=== PATIENT | female | born 1940 | race Caucasian/White ===

== ENCOUNTER 2018-02-20 19:50 | Inpatient (IN) | payer MEDICARE, MEDICAID ==
[2018-02-20 20:23] LABS: Bilirubin Negative (Negative); Blood, Urine Negative (Negative); Clarity CLEAR (Clear); Glucose, Urine (Dipstick) Negative (Negative); Leukocyte Negative (Negative); Nitrite Negative (Negative); Protein, Urine (Dipstick) Negative (Neg-Trace); Specific Gravity, Urine 1.016 (1.002-1.036); Urobilinogen 0.2 mg/dL (0.2-1.0)
[2018-02-20 20:34] LABS: #Eosinphils 0.2 thou/uL (0.0-0.7); #Lymphocytes 1.6 thou/uL (1.20-3.40); #Monocytes 0.4 thou/uL (0.11-0.59); #Neutrophils 3.1 thou/uL (1.40-6.50); %Basophils 0.5 % (0.0-1.0); %Eosinophils 2.9 % (0.0-10.0); %Lymphocytes 30.5 % (21.0-51.0); %Neutrophils 59.1 % (42.0-75.0); Hemoglobin 10.7 g/dL (12.0-16.0); Mean Corpuscular HGB CONC 33.9 g/dL (32.0-36.0); Mean Corpuscular Hemoglobin 32.4 pg (27.0-31.0); Mean Corpuscular Volume 95.5 fl (81.0-99.0); Platelet Count 151 thou/uL (130-400); RBC Distribution Width 13.5 % (11.5-14.5); Red Blood Cell (RBC) Count 3.31 mill/uL (4.20-5.40); White Blood Cell (WBC) Count 5.2 thou/uL (4.8-10.8)
[2018-02-20 20:56] LABS: ALT (SGPT) 20 U/L (8-55); AST (SGOT) 22 U/L (5-34); Albumin 3.1 g/dL (3.4-4.8); Alkaline Phosphatase 52 U/L (40-150); Anion Gap 14 mmol/L (10-20); BUN (Urea Nitrogen) 66 mg/dL (9.8-20.1); Bilirubin, Total 0.3 mg/dL (0.2-1.2); CK (CPK) 110 U/L (29-168); Calc. Creatinine Clearance 0 mL/min (70-130); Calcium 8.6 mg/dL (7.8-10.44); Carbon Dioxide 22 mmol/L (23-31); Chloride 108 mmol/L (98-107); Estimated GFR-MDRD 14; Globulin 2.6 g/dL (2.4-3.5); Glucose 76 mg/dL (83-110); Lipase 107 U/L (8-78); Potassium 4.6 mmol/L (3.5-5.1); Protein, Total 5.7 g/dL (6.0-8.3); Sodium 139 mmol/L (136-145)
[2018-02-20 21:00] LABS: CKMB 2.1 ng/mL (0-6.6); Troponin I 0.016 ng/mL (< 0.028)
[2018-02-20] MEDS ORDERED: Piperacillin/Tazobactam 3.375 GM VIAL ONE (21:22)
--- NOTE | 2018-02-20 21:26 | RAD ---
PORTABLE AP CHEST X-RAY 02/20/18 HISTORY: Altered mental status. Low blood pressure. COMPARISON: 05/30/15. FINDINGS: The cardiac silhouette is magnified by projection. There is atelectasis present at each lung base. Pu lmonary vasculature is within normal limits. Lungs are otherwise clear. Right paratracheal soft tissu e density is again seen, but this is shown to represent tortuosity of vascular structures on CT thora x on 06/03/15. Osteopenia with degenerative change in the spine. Mild elevation right hemidiaphragm is again present . IMPRESSION: 1. No acute cardiopulmonary process. 2. Atelectasis left lung base. 3. Osteopenia. POS: [facility]
--- NOTE | 2018-02-20 22:14 | CT ---
NONCONTRAST CT HEAD: 02/20/18 HISTORY: Altered mental status and confusion. COMPARISON: 12/01/13. FINDINGS: Again noted are chronic small vessel ischemic changes and cerebral volume loss. There is no evidence of an acute cortical infarction, hemorrhage, mass effect, of midline shift. Punctate low density focu s is seen within the right lentiform nucleus which may represent a tiny lacunar infarction of indeter minate age. There is no evidence of an acute cortical infarction, hemorrhage, mass effect, or midline shift. There is cerebral volume loss again present. Ventricular system is normal in size, shape and position for the degree of sulcal atrophy. Again noted is opacification of the left sphenoid sinus. There is partial visualization of postsurgic al changes related to posterior fusion of the upper cervical spine. No other interval change. IMPRESSION: 1. No acute intracranial abnormalities demonstrated. 2. Chronic small vessel ischemic changes and cerebral volume loss. 3. Stable sinus disease involving the left sphenoid sinus. POS: [facility]
[2018-02-21] MEDS ORDERED: Sodium Chloride 0.45% 1,000 ML IV SCH (04:41)
--- NOTE | 2018-02-21 08:24 | CT ---
CT ABDOMEN AND PELVIS WITHOUT IV CONTRAST: Date: 02/20/18 HISTORY: Abdominal pain, hypotensive, altered mental status. COMPARISON: CT abdomen on 06/03/15. FINDINGS: There is bibasilar parenchymal lung change, probably related to bibasilar atelectasis. The liver, spleen, pancreas, bilateral adrenal glands, and kidneys demonstrate a grossly normal nonen hanced CT appearance. The urinary bladder is distended and extends superiorly to the level of the iliac crests. The uterus is not visualized, likely related to hysterectomy. There is colonic diverticulosis present. The appendix is visualized and normal in caliber. Inferior vena cava filter is again noted in place in an infrarenal location. Vascular calcifications seen in the abdominal aorta and iliac arteries. Degenerative changes are again seen in the spine. No dilated loops of small bowel are seen, but there is thickening of the landaver[place] of the stomach, probably related to incomplete distention. However, there is also mild thickening involving the first and second portions of the duodenum. Ulcer disease could not be excluded. IMPRESSION: 1. Thickening in first portion and most proximal aspect of the second portion of the duodenum. Ulcer disease cannot be excluded. Prior study did demonstrate ulceration, although the degree of thickenin g was much greater on the prior study in 2014. 2. No renal or ureteral calculi are seen bilaterally. 3. Colonic diverticulosis. 4. Distention of the urinary bladder. 5. Hysterectomy. POS: [facility]
[2018-02-21] MEDS ORDERED: Prevnar 13-Val Conj/PF 0.5 ML SYRINGE IM ONE (09:00)
[2018-02-21] MEDS ORDERED: Insulin Regular 300 UNITS/3 ML VIAL SC PRN (12:23)
[2018-02-21] MEDS ORDERED: Dextrose 5% in Water 1,000 ML IV PRN (12:24)
[2018-02-21] MEDS ORDERED: Dextrose 50% Abboject 50 ML SYRINGE IVP PRN (12:24)
[2018-02-21] MEDS: Piperacillin/Tazobactam 2.25 GM in Sodium Chloride 0.9% 100 ML IVPB SCH ×2 (13:08→21:38)
[2018-02-21] MEDS: Sodium Chloride 0.9% 1,000 ML IV SCH ×3 (13:14→22:13)
--- NOTE | 2018-02-21 18:28 | HP ---
REASON FOR ADMISSION: Weakness and dehydration. HISTORY OF PRESENT ILLNESS: This is a 77-year-old female, who has been a resident at [facility] for l ast 2-3 years with a history of PE and DVT. She also has a history of hypertension, hyperlipidemia, and diabetes. For the last several days, the nurse has been trying to get her to drink fluids; however, she was hav ing some abdominal cramps and was not taking much in. She was also having nausea. We checked a UA t hat was negative at the longterm; however, she became more weak and therefore we brought her into the hospital and was found to have dehydration with a creatinine over 3. She also had a little bit altered mental status with a CT, which was negative. The patient denies an y chest or arm pain. She does have a history of chronic back pain with no PND, orthopnea, or palpita tions. PAST MEDICAL HISTORY: 1. Hypertension. 2. Peripheral neuropathy. 3. Diabetes. 4. Hyperlipidemia. 5. Anemia. 6. Arthritis. 7. History of neck surgery. 8. Insomnia. PAST SURGICAL HISTORY: Lumbar surgery x2 and a cholecystectomy. ALLERGIES: SULFA. MEDICATIONS: 1. Clonidine 0.1 mg b.i.d. 2. Metformin 1000 mg b.i.d. 3. Coreg 12.5 mg b.i.d. and then 25 mg at night. 4. Zocor 20 mg at bedtime. 5. Depakote 125 mg every day. 6. Celebrex 200 mg daily. 7. Hydrochlorothiazide 50 mg every day. FAMILY HISTORY: Noncontributory. SOCIAL HISTORY: She lives at [facility]. She does not smoke, does not drink. She is . REVIEW OF SYSTEMS: GENERAL: Admits to weakness, fatigue. No fever or chills. HEENT: No diplopia, amaurosis fugax, tinnitus, sore throat or hoarseness. CARDIOVASCULAR: No chest or arm pain. PULMONARY: Does have a history of PE. No cough or hemoptysis. GASTROINTESTINAL: No GI bleed, constipation, diarrhea. GENITOURINARY: No dysuria, nocturia, oliguria or polyuria. ENDOCRINE: No polyphagia, polydipsia or heat or cold intolerance. MUSCULOSKELETAL: Admits to arthra lgias. No lupus or myopathy. NEUROLOGIC: No history of TIA or seizure. All systems are negative. PHYSICAL EXAMINATION: GENERAL APPEARANCE: This pleasant female, who appears to be in acute distress. She is awake. She i s alert. VITAL SIGNS: Her blood pressure is 150/70, pulse 60, respiration 20. She is afebrile. NECK: Supple, no increased JVP or carotid bruit. Carotid had good upstroke with no thyromegaly. COR: Regular rate and rhythm. CHEST: Symmetrical. Clear to auscultation and percussion. ABDOMEN: Soft, nontender, normoactive bowel sounds. There is no bruit or organomegaly. EXTREMITIES: No edema or cyanosis. She had palpable pedal pulses. SKIN: There is no evidence of ulcers lesion, or rash. NEUROLOGIC: She is awake, alert, and oriented to person, place, and time. LABORATORY DATA: Her H&H is 10.7 and 31.6. White blood cell count 5.2. Her BUN is 66, creatinine i s 3.17. Her lipase is 107. She did have a CT of the brain that was normal. Chest x-ray normal. Ab domen and pelvis CT showed demonstrated thickening and first portion of that aspect of the second por tion of the duodenum, no renal stones and also had colonic diverticulosis, distention of the bladder, and hysterectomy. ASSESSMENT: 1. Dehydration. 2. Elevated kidney function secondary to above. 3. Hypertension. 4. Hyperlipidemia. 5. Diabetes. 6. Chronic back pain. 7. History of neck surgery. 8. History of pulmonary embolus and DVT with IVC filter placement. 9. Elevated lipase. 10. Possible enteritis. PLAN: 1. The patient's home medication will be resumed except her metformin and she is not eating yet. I will continue IV fluids. We will also continue IV Zosyn. We will ask Physical Therapy to see the laura paiz in consultation. 2. We will begin Nexium daily. 3. We will check a CBC, CMP, amylase, and lipase in the morning. All questions answered to the patient's satisfaction. Eloisa Chou, SURINDER-C dictating for Dr. Branden Carr.
[2018-02-21] MEDS: Carvedilol 6.25 MG TAB PO SCH (21:40)
[2018-02-21] MEDS: cloNIDine 0.1 MG TAB PO SCH (21:40)
[2018-02-21] MEDS: Carvedilol 25 MG TAB PO SCH (21:41)
[2018-02-21] MEDS: Atorvastatin Calcium 10 MG TAB PO SCH (21:41)
[2018-02-21] MEDS: Dextrose 5 %-0.45 % NaCl 1,000 ML IV SCH (22:14)
[2018-02-21] MEDS ORDERED: Dextrose 50% Abboject 50 ML SYRINGE SLOW IVP SCH (22:15)
[2018-02-22] MEDS: Piperacillin/Tazobactam 2.25 GM in Sodium Chloride 0.9% 100 ML IVPB SCH ×3 (05:15→22:44)
[2018-02-22 05:17] LABS: #Eosinphils 0.2 thou/uL (0.0-0.7); #Lymphocytes 1.1 thou/uL (1.20-3.40); #Monocytes 0.4 thou/uL (0.11-0.59); #Neutrophils 2.7 thou/uL (1.40-6.50); %Basophils 0.2 % (0.0-1.0); %Eosinophils 3.6 % (0.0-10.0); %Lymphocytes 25.6 % (21.0-51.0); %Monocytes 8.4 % (0.0-10.0); %Neutrophils 62.2 % (42.0-75.0); Hemoglobin 9.8 g/dL (12.0-16.0); Mean Corpuscular HGB CONC 33.3 g/dL (32.0-36.0); Mean Corpuscular Hemoglobin 31.8 pg (27.0-31.0); Mean Corpuscular Volume 95.6 fl (81.0-99.0); Mean Platelet Volume 6.7 fL (7.4-10.4); Platelet Count 128 thou/uL (130-400); RBC Distribution Width 13.4 % (11.5-14.5); Red Blood Cell (RBC) Count 3.08 mill/uL (4.20-5.40); White Blood Cell (WBC) Count 4.4 thou/uL (4.8-10.8)
[2018-02-22 05:26] LABS: ALT (SGPT) 16 U/L (8-55); AST (SGOT) 19 U/L (5-34); Albumin 2.8 g/dL (3.4-4.8); Alkaline Phosphatase 47 U/L (40-150); Anion Gap 10 mmol/L (10-20); BUN (Urea Nitrogen) 44 mg/dL (9.8-20.1); Bilirubin, Total 0.3 mg/dL (0.2-1.2); Calc. Creatinine Clearance 22 mL/min (70-130); Calcium 8.1 mg/dL (7.8-10.44); Carbon Dioxide 20 mmol/L (23-31); Cardiac Risk 4.5 (Less than 4.5); Chloride 111 mmol/L (98-107); Cholesterol 100 mg/dl (< 200 Desired); Estimated GFR-MDRD 20; Globulin 2.4 g/dL (2.4-3.5); Glucose 212 mg/dL (83-110); HDL Cholesterol 22 mg/dL (>60 Neg Risk); LDL Cholesterol, Calculated 33 mg/dL; Lipase 93 U/L (8-78); Potassium 4.2 mmol/L (3.5-5.1); Protein, Total 5.2 g/dL (6.0-8.3); Sodium 137 mmol/L (136-145); Triglycerides 223 mg/dL (Less than 150)
[2018-02-22] MEDS ORDERED: Morphine 4 MG/ML VIAL SLOW IVP SCH (06:00)
[2018-02-22] MEDS ORDERED: Ondansetron HCl/PF 4 MG/2 ML Vial SLOW IVP PRN (06:00)
[2018-02-22] MEDS: Dextrose 5 %-0.45 % NaCl 1,000 ML IV SCH ×2 (07:34→18:20)
[2018-02-22] MEDS: Pantoprazole 40 MG VIAL IVP SCH ×2 (08:53→22:38)
[2018-02-22] MEDS: CeleCOXIB 100 MG CAP PO SCH (09:43)
[2018-02-22] MEDS: Carvedilol 6.25 MG TAB PO SCH ×2 (09:43→22:41)
[2018-02-22] MEDS: cloNIDine 0.1 MG TAB PO SCH ×2 (09:43→22:41)
[2018-02-22] MEDS: Hydrochlorothiazide 25 MG TAB PO SCH (09:44)
[2018-02-22] MEDS: Morphine 4 MG/ML VIAL SLOW IVP PRN (22:39)
[2018-02-22] MEDS: Carvedilol 25 MG TAB PO SCH (22:41)
[2018-02-22] MEDS: Atorvastatin Calcium 10 MG TAB PO SCH (22:41)
[2018-02-23] MEDS: Dextrose 5 %-0.45 % NaCl 1,000 ML IV SCH ×3 (04:50→23:39)
[2018-02-23 05:23] LABS: #Eosinphils 0.1 thou/uL (0.0-0.7); #Lymphocytes 1.4 thou/uL (1.20-3.40); #Monocytes 0.6 thou/uL (0.11-0.59); #Neutrophils 2.8 thou/uL (1.40-6.50); %Basophils 0.3 % (0.0-1.0); %Lymphocytes 28.1 % (21.0-51.0); %Monocytes 12.7 % (0.0-10.0); Hemoglobin 10.5 g/dL (12.0-16.0); Mean Corpuscular HGB CONC 33.3 g/dL (32.0-36.0); Mean Corpuscular Hemoglobin 31.6 pg (27.0-31.0); Mean Corpuscular Volume 94.8 fl (81.0-99.0); Mean Platelet Volume 7.3 fL (7.4-10.4); Platelet Count 126 thou/uL (130-400); RBC Distribution Width 13.4 % (11.5-14.5); Red Blood Cell (RBC) Count 3.31 mill/uL (4.20-5.40)
[2018-02-23 05:35] LABS: Anion Gap 13 mmol/L (10-20); BUN (Urea Nitrogen) 28 mg/dL (9.8-20.1); Calc. Creatinine Clearance 24 mL/min (70-130); Calcium 8.4 mg/dL (7.8-10.44); Carbon Dioxide 18 mmol/L (23-31); Chloride 110 mmol/L (98-107); Estimated GFR-MDRD 22; Glucose 176 mg/dL (83-110); Lipase 89 U/L (8-78); Sodium 137 mmol/L (136-145)
[2018-02-23] MEDS: Piperacillin/Tazobactam 2.25 GM in Sodium Chloride 0.9% 100 ML IVPB SCH ×3 (05:36→21:13)
[2018-02-23 08:23] VITALS: BMI 28.3
--- NOTE | 2018-02-23 08:41 | PRG ---
DATE OF SERVICE: 02/23/2018 SUBJECTIVE: The patient is still having slight abdominal discomfort. She is still n.p.o. for pancre atitis. She is awake, alert, and oriented. There is no family here at bedside. PHYSICAL EXAMINATION: GENERAL: Upon evaluation she is awake. VITAL SIGNS: Her blood pressure is 130/90, pulse 90, respirations 18, she is afebrile. NECK: The neck is supple, no increased JVP or carotid bruit. Carotids had good upstrokes, no thyrom egaly. COR: Regular rate and rhythm. CHEST: Symmetrical. Clear to auscultation and percussion. ABDOMEN: Distended, soft, tender. She had hypoactive bowel. No bruit or organomegaly. EXTREMITIES: No edema or cyanosis. She had palpable pedal pulses. SKIN: There is no evidence of ulcers, lesion or rash. NEUROLOGIC: She is awake and alert. LABORATORY: Her CBC showed a white blood cells 5, H&H 10.5 and 31.4, platelet count is 126. Her BUN is 28, creatinine 2.14. Lipase is 89. IMPRESSION: 1. Pancreatitis. 2. Dehydration. 3. Acute renal failure. 4. Diabetes. PLAN: The patient will be continued n.p.o. for now. Hopefully, tomorrow we will be able to start cl ear liquids. We will also follow up with amylase and lipase and CMP in the morning. The patient douglas balized understanding. All questions answered to her satisfaction.
[2018-02-23] MEDS: Carvedilol 6.25 MG TAB PO SCH ×2 (09:00→20:37)
[2018-02-23] MEDS: CeleCOXIB 100 MG CAP PO SCH (09:00)
[2018-02-23] MEDS: Hydrochlorothiazide 25 MG TAB PO SCH (09:01)
[2018-02-23] MEDS: cloNIDine 0.1 MG TAB PO SCH ×2 (09:01→20:37)
[2018-02-23] MEDS: Pantoprazole 40 MG VIAL IVP SCH ×2 (09:02→20:38)
--- NOTE | 2018-02-23 11:20 | PQF ---
CLINICAL DOCUMENTATION IMPROVEMENT CLARIFICATION FORM: ICD-10 Updated PLEASE DO AN ADDENDUM TO THE PROGRESS NOTE WITH ANY DOCUMENTATION UPDATES OR ADDITIONS AND CARRY THROUGH TO DC SUMMARY. THANK YOU. DATE: 02/23 ATTN: DR. JACK GONZALEZ Please exercise your independent, professional judgment in responding to the clarification form. Clinical indicators are provided on the bottom of this form for your review Please check appropriate box(s): ____x___ I (concur) with the Wound Care findings as stated below. [ x ] Pressure Ulcer: (Stage I: Erythema; Stage II: Partial thickness; Stage III : Full thickness; Stage IV: Necrosis to muscle/bone) [ x ] Location: right buttock POA: [ x ] Yes [ ] No [ ] Unable to determine Stage (I to IV): __II (Left Right___x__ Bilateral N/A____ _) [ ] Location: POA: [ ] Yes [ ] No [ ] Unable to determine Stage (I to IV): (Left Right Bilateral N/A ) [ ] No pressure ulcer diagnosis [ ] Other diagnosis [ ] Unable to determine In addition, please specify: Present on Admission (POA): [ x ] Yes [ ] No [ ] Unable to determine For continuity of documentation, please document condition throughout progress notes and discharge summary. Thank You. CLINICAL INDICATORS - SIGNS / SYMPTOMS / LABS WOUND CARE DOCUMENTATION 02/22: STAGE II PRESSURE ULCER R BUTTOCK RISK FACTORS: DEMENTIA DEHYDRATION INCONTINENT TREATMENTS: WOUND CARE CONSULT TURN Q2 HRS & PRN MAE ESCOTO THANK YOU! Jael (This form is maintained as a part of the permanent medical record) 2014 [employer]. All Rights Reserved Jael Huffman RN, BSN [email or web address] Office: [phone] [facility]
[2018-02-23] MEDS: Atorvastatin Calcium 10 MG TAB PO SCH (20:37)
[2018-02-23] MEDS: Carvedilol 25 MG TAB PO SCH (20:37)
[2018-02-23] MEDS: Morphine 4 MG/ML VIAL SLOW IVP PRN (20:54)
[2018-02-24] MEDS: Piperacillin/Tazobactam 2.25 GM in Sodium Chloride 0.9% 100 ML IVPB SCH ×3 (05:34→21:02)
[2018-02-24] MEDS: Dextrose 5 %-0.45 % NaCl 1,000 ML IV SCH ×3 (05:34→21:03)
[2018-02-24 06:20] LABS: ALT (SGPT) 29 U/L (8-55); AST (SGOT) 55 U/L (5-34); Albumin 2.8 g/dL (3.4-4.8); Alkaline Phosphatase 119 U/L (40-150); Anion Gap 10 mmol/L (10-20); BUN (Urea Nitrogen) 19 mg/dL (9.8-20.1); Bilirubin, Total 0.6 mg/dL (0.2-1.2); Calc. Creatinine Clearance 23 mL/min (70-130); Calcium 8.6 mg/dL (7.8-10.44); Carbon Dioxide 21 mmol/L (23-31); Chloride 109 mmol/L (98-107); Estimated GFR-MDRD 22; Globulin 2.6 g/dL (2.4-3.5); Glucose 164 mg/dL (83-110); Potassium 3.8 mmol/L (3.5-5.1); Protein, Total 5.4 g/dL (6.0-8.3); Sodium 136 mmol/L (136-145)
[2018-02-24] MEDS: Pantoprazole 40 MG VIAL IVP SCH ×2 (09:13→20:24)
[2018-02-24] MEDS: Hydrochlorothiazide 25 MG TAB PO SCH (09:20)
[2018-02-24] MEDS: cloNIDine 0.1 MG TAB PO SCH ×2 (09:20→20:24)
[2018-02-24] MEDS: CeleCOXIB 100 MG CAP PO SCH (09:21)
[2018-02-24] MEDS: Carvedilol 6.25 MG TAB PO SCH ×2 (09:21→20:24)
[2018-02-24] MEDS: Atorvastatin Calcium 10 MG TAB PO SCH (20:24)
[2018-02-24] MEDS: Carvedilol 25 MG TAB PO SCH (20:24)
[2018-02-25] MEDS: Piperacillin/Tazobactam 2.25 GM in Sodium Chloride 0.9% 100 ML IVPB SCH ×3 (06:16→21:29)
[2018-02-25 06:21] LABS: Anion Gap 9 mmol/L (10-20); BUN (Urea Nitrogen) 17 mg/dL (9.8-20.1); Calc. Creatinine Clearance 23 mL/min (70-130); Calcium 8.5 mg/dL (7.8-10.44); Carbon Dioxide 22 mmol/L (23-31); Chloride 111 mmol/L (98-107); Estimated GFR-MDRD 21; Glucose 134 mg/dL (83-110); Lipase 48 U/L (8-78); Potassium 3.8 mmol/L (3.5-5.1); Sodium 138 mmol/L (136-145)
[2018-02-25] MEDS: Hydrochlorothiazide 25 MG TAB PO SCH (08:49)
[2018-02-25] MEDS: Carvedilol 6.25 MG TAB PO SCH ×2 (08:50→21:28)
[2018-02-25] MEDS: CeleCOXIB 100 MG CAP PO SCH (08:51)
[2018-02-25] MEDS: cloNIDine 0.1 MG TAB PO SCH ×2 (08:51→21:29)
[2018-02-25] MEDS: Pantoprazole 40 MG VIAL IVP SCH ×2 (08:52→21:28)
[2018-02-25] MEDS: Dextrose 5 %-0.45 % NaCl 1,000 ML IV SCH (13:24)
[2018-02-25] MEDS: Megestrol Acetate 800 MG/20 ML UDCUP PO SCH (21:28)
[2018-02-25] MEDS: Atorvastatin Calcium 10 MG TAB PO SCH (21:28)
[2018-02-25] MEDS: Carvedilol 25 MG TAB PO SCH (21:29)
[2018-02-26] MEDS: Dextrose 5 %-0.45 % NaCl 1,000 ML IV SCH (02:10)
[2018-02-26] MEDS: Piperacillin/Tazobactam 2.25 GM in Sodium Chloride 0.9% 100 ML IVPB SCH (05:11)
[2018-02-26] MEDS: Megestrol Acetate 800 MG/20 ML UDCUP PO SCH (08:31)
[2018-02-26] MEDS: CeleCOXIB 100 MG CAP PO SCH (08:32)
[2018-02-26] MEDS: cloNIDine 0.1 MG TAB PO SCH (08:32)
[2018-02-26] MEDS: Carvedilol 6.25 MG TAB PO SCH (08:32)
[2018-02-26] MEDS: Hydrochlorothiazide 25 MG TAB PO SCH (08:32)
[2018-02-26] MEDS: Pantoprazole 40 MG VIAL IVP SCH (08:32)
[2018-02-26 12:09] VITALS: TEMP 97.6
[2018-02-26 12:48] VITALS: BP 138/69
== END 2018-02-26 14:15 | disposition home or self-care (01) | DRG 438 ==
LOC: ERS 19:50 → 2NO 02-21 00:58
PROVIDERS: ADMIT Specialist; ATTEND Specialist
DX: K85.90 Acute pancreatitis without necrosis or infection, unspecified (principal); R57.1 Hypovolemic shock; N17.9 Acute kidney failure, unspecified; L89.312 Pressure ulcer of right buttock, stage 2; G62.9 Polyneuropathy, unspecified; E11.9 Type 2 diabetes mellitus without complications; E86.0 Dehydration; F03.90 Unspecified dementia, unspecified severity, without behavioral disturbance, psychotic disturbance, mood disturbance, and anxiety; E78.5 Hyperlipidemia, unspecified; I10 Essential (primary) hypertension; R63.0 Anorexia; M81.0 Age-related osteoporosis without current pathological fracture
CPT/HCPCS: 36415; 36416; 51701; 70450; 71045; 74176; 80048; 80053; 80061; 81003; 82140; 82150; 82553; 83605; 83690; 84443; 84484; 85025; 87040; 87045; 87046; 87086; 87324; 87449; 87899; 93005; 94760; 96361; 96365; A4216; A4353; C9113; G8978-GP-CM; G8979-GP-CK; G8996-GN-CK; G8997-GN-CJ; J2270; J2543; J7042; J7050

== ENCOUNTER 2018-04-01 01:35 | Inpatient (IN) | payer MEDICARE, MEDICAID ==
[2018-04-01 02:17] LABS: Bilirubin Negative (Negative); Blood, Urine Trace (Negative); Clarity CLOUDY (Clear); Glucose, Urine (Dipstick) Negative (Negative); Leukocyte Large (Negative); Nitrite Negative (Negative); Protein, Urine (Dipstick) 100 mg/dL (Neg-Trace); Specific Gravity, Urine 1.015 (1.002-1.036); Urobilinogen 0.2 mg/dL (0.2-1.0); pH, Urine 5.5 (5.0-9.0)
[2018-04-01 02:21] LABS: Bacteria/HPF None Seen HPF (None Seen); Hyaline Casts/LPF 7-10 HYALINE CAST LPF (0-3 Hyaline); Pathc Cast-AUWi Flag 2.32 (0-2.49); Squamous Epithelial 0-3 HPF (0-3)
[2018-04-01 02:24] LABS: #Basophils 0.1 thou/uL (0.0-0.2); #Eosinphils 0.2 thou/uL (0.0-0.7); #Neutrophils 13.6 thou/uL (1.40-6.50); %Basophils 0.3 % (0.0-1.0); %Eosinophils 1.2 % (0.0-10.0); %Lymphocytes 16.6 % (21.0-51.0); %Monocytes 5.7 % (0.0-10.0); %Neutrophils 76.1 % (42.0-75.0); Hemoglobin 9.6 g/dL (12.0-16.0); Mean Corpuscular HGB CONC 32.5 g/dL (32.0-36.0); Mean Corpuscular Hemoglobin 31.3 pg (27.0-31.0); Mean Corpuscular Volume 96.1 fl (81.0-99.0); Mean Platelet Volume 7.1 fL (7.4-10.4); Platelet Count 276 thou/uL (130-400); RBC Distribution Width 13.8 % (11.5-14.5); Red Blood Cell (RBC) Count 3.06 mill/uL (4.20-5.40); White Blood Cell (WBC) Count 17.9 thou/uL (4.8-10.8)
[2018-04-01 02:24] LABS: Yeast-AUWi Flag 1714.2 (0-25.0)
[2018-04-01 02:24] LABS: Base Excess-Venous -13.3 mmol/L (0 (+/- 2.5)); Bicarbonate (HCO3v) 11.1 mmol/L (1.0-85.0); CO2 Tension (PvCO2) 21.4 mmHg (41.0-51.0); Calcium, Ionized 1.18 mmol/L (1.12-1.32); Hemoglobin - Calc 9.6 g/dL (12.0-18.0); O2 Tension (PvO2) 78.8 mmHg (35.0-45.0); Potassium 8.2 mmol/L (3.4-4.7); T. Carbon Dioxide 11.7 mmol/L (1.0-85.0); pH (Venous) 7.322 (7.35-7.45); vO2 Saturation-calc 94.9 % (94-98)
[2018-04-01] MEDS ORDERED: Calcium Gluc 4.6 MEQ/10 ML (100 MG/ML) ONE (02:27)
[2018-04-01 02:36] LABS: RBC/HPF 0-3 HPF (0-3); Yeast-All Forms 4+ HPF (None Seen)
[2018-04-01] MEDS ORDERED: Insulin Regular 300 UNITS/3 ML VIAL ONE (02:42)
[2018-04-01] MEDS ORDERED: Dextrose 50% Abboject 50 ML SYRINGE ONE (02:42)
[2018-04-01 02:49] LABS: ALT (SGPT) 16 U/L (8-55); AST (SGOT) 15 U/L (5-34); Albumin 3.3 g/dL (3.4-4.8); Alkaline Phosphatase 57 U/L (40-150); Anion Gap 17 mmol/L (10-20); Bilirubin, Total 0.4 mg/dL (0.2-1.2); Calc. Creatinine Clearance 0 mL/min (70-130); Calcium 9.8 mg/dL (7.8-10.44); Carbon Dioxide 12 mmol/L (23-31); Chloride 113 mmol/L (98-107); Estimated GFR-MDRD 7; Globulin 4.1 g/dL (2.4-3.5); Glucose 90 mg/dL (83-110); Lipase 63 U/L (8-78); Magnesium 2.1 mg/dL (1.6-2.6); Protein, Total 7.4 g/dL (6.0-8.3); Sodium 134 mmol/L (136-145)
[2018-04-01] MEDS ORDERED: Albuterol Sulfate 2.5 mg/0.5 ml Neb ONE (02:49)
[2018-04-01 02:56] LABS: Potassium 8.1 mmol/L (3.5-5.1)
[2018-04-01] MEDS ORDERED: cefTRIAXone\\ROCEPHIN 1 GM VIAL ONE (02:59)
[2018-04-01 03:01] LABS: BUN (Urea Nitrogen) 116 mg/dL (9.8-20.1)
[2018-04-01] MEDS ORDERED: Vancomycin HCl 1 GM in Premix Bag 1 BAG IVPB SCH ×3 (03:15→15:45)
[2018-04-01 07:20] LABS: HBSAB Concentration 0.37 mIU/mL; HBSAg Index 0.17 S/CO (0-0.99); Hep B Core Total Ab Non-Reactive (NonReactive); Hep B Core Total Index 0.18 S/CO (0-0.79); Hep B Surf AB Non-Reactive (NonReactive); Hep B Surf Ag Non-Reactive S/CO (NonReactive); Hep C IgG Ab Non-Reactive (NonReactive)
--- NOTE | 2018-04-01 08:15 | CT ---
PRELIMINARY REPORT/[facility]/EMERGENCY AFTER HOURS PROCEDURE: EXAM: CT Head Without Intravenous Contrast CLINICAL HISTORY: 77 years old, female; Signs and symptoms; Altered mental status/memory loss; Patient HX: F77 presents to ed for altered mental status. Ems reports pt is usually a&o x3 but is now a&o x0 and not talking. Ems reports pt was started on a new prescription for tramadol today. TECHNIQUE: Axial computed tomography images of the head/brain without intravenous contrast. COMPARISON: No relevant prior studies available. FINDINGS: Brain: Scattered areas of hypoattenuation, likely chronic small vessel ischemic change, demyelination , or gliosis. Ventricles: Normal. Bones/joints: Normal. No acute fracture. Soft tissues: Normal. Vasculature: Atherosclerotic vascular calcifications. Sinuses: Left sphenoid sinus disease. Mastoid air cells: Normal as visualized. No mastoid effusion. IMPRESSION: 1. No acute findings. 2. Non-acute findings are described above. Thank you for allowing us to participate in the care of your patient. Dictated and Authenticated by: Alexis Polanco MD 04/01/2018 2:50 AM Central Time ([place] & [place]) FINAL REPORT EMERGENCY AFTER HOURS CT OF BRAIN PERFORMED WITHOUT CONTRAST ENHANCEMENT: Date: 04/01/18 HISTORY: Altered mental status. COMPARISON: 02/20/18. FINDINGS: There is generalized ventricular and sulcal prominence with some decreased attenuation to the periven tricular white matter consistent with chronic white matter change. There are no signs of intracerebra l hemorrhage or extra-axial fluid collections. Mastoid air cells and visualized sinuses are clear. IMPRESSION: No acute intracranial abnormalities. This report is in agreement with the preliminary report issued by [facility]. POS: [facility]
[2018-04-01] MEDS ORDERED: Sodium Chloride 0.9% 1,000 ML IV SCH ×3 (08:45→23:00)
[2018-04-01] MEDS ORDERED: Insulin Regular 300 UNITS/3 ML VIAL SC PRN (08:49)
[2018-04-01] MEDS ORDERED: Dextrose 5% in Water 1,000 ML IV PRN (08:49)
[2018-04-01] MEDS ORDERED: Dextrose 50% Abboject 50 ML SYRINGE IVP PRN (08:49)
--- NOTE | 2018-04-01 09:12 | RAD ---
PORTABLE CHEST: Date: 04/01/18 HISTORY: Altered mental status. COMPARISON: 02/20/18. FINDINGS: Heart size appears borderline. Mediastinal structures are unremarkable. Lungs are clear of any infilt rative process. IMPRESSION: No active intrathoracic disease. POS: [facility]
[2018-04-01] MEDS ORDERED: HOLD VANCOMYCIN FOR LEVEL >20 FS SCH ×2 (09:15→15:45)
[2018-04-01] MEDS ORDERED: Vancomycin HCl 750 MG in Sodium Chloride 0.9% 250 ML 250 ML IVPB SCH ×2 (09:15→15:45)
[2018-04-01] MEDS ORDERED: Vancomycin HCl 250 MG in Sodium Chloride 0.9% 100 ML IVPB SCH ×2 (09:15→15:45)
[2018-04-01] MEDS ORDERED: Vancomycin Sliding Scale 1 EACH FS ONE (09:15)
[2018-04-01] MEDS ORDERED: Vancomycin HCl 500 MG in Sodium Chloride 0.9% 100 ML IVPB SCH (09:15)
--- NOTE | 2018-04-01 09:17 | HP ---
REASON FOR ADMISSION: Altered level of consciousness. HISTORY OF PRESENT ILLNESS: This is a pleasant 77-year-old female who is a resident at [facility] a history of multiple medical problems to include PE and DVT as well as hypertension and diabetes. She has had a cyst according to the wound doctor following her at [facility] on her coccyx. He had flakita mcdowell treating that. Unfortunately, it became worse where it started tunneling and a recent consultati on was sought out for a surgeon for surgical debridement. Unfortunately, I got a call yesterday with the patient stating that they had altered level of consciousness with earlier episodes of pocketing of food. Apparently in the daytime she had been doing well, but the night time, the nurse was notici ng she was not drinking very much and then had altered level of consciousness. She was sent to the ospital where she was found to have altered mental status with an acute renal failure and hyperkalemi a. She was also found to be septic secondary to urinary tract infection and probably a wound. For t his reason, she was admitted to ICU for further evaluation and treatment at which time she is now und ergoing emergent dialysis. The patient is awake. She will nod her head with questions, but she will not verbalize at this time. Most of the history was obtained from the old records. PAST MEDICAL HISTORY: 1. Hypertension. 2. Peripheral neuropathy. 3. Diabetes. 4. Hyperlipidemia. 5. Anemia. 6. Arthritis. 7. Insomnia. SURGICAL HISTORY: History of neck surgery and lumbar surgery x2 and cholecystectomy. ALLERGIES: SULFA. MEDICATIONS: Unknown. FAMILY HISTORY: Negative for coronary artery disease. SOCIAL HISTORY: She does not smoke or drink alcohol. She is a resident at [facility]. REVIEW OF SYSTEMS: Cannot be obtained due to the patient's mental status. PHYSICAL EXAMINATION: GENERAL: She is awake, she is alert, but she will not verbalize. She will only nod her head. VITAL SIGNS: Blood pressure this morning 90/50, pulse 70, respirations 18. She is afebrile. NECK: Supple with no increased JVP or carotid bruit. Carotid had good upstroke with no thyromegaly. CARDIOVASCULAR: Regular rate and rhythm. CHEST: Decreased breath sounds with upper lobe wheezing. ABDOMEN: Soft, nontender with normoactive bowel sounds. There is no bruit or organomegaly. EXTREMITIES: Trace edema. She had palpable pedal pulses. She has a dialysis catheter. Coccyx, she has large area that has a wound that has tunneling. There is no odor to the wound. NEUROLOGIC: She is awake, alert, and oriented, but will not verbalize with her speech. LABORATORY DATA: When she came in, her white blood cells 17.9, her H&H 9.6 and 29.5, platelet count is 276. Her potassium was 8.2. Her BUN was we 116, her creatinine 5.71. Urine showed positive for UTI. ASSESSMENT: 1. Sepsis. 2. Acute renal failure with hyperkalemia. 3. Altered level of consciousness secondary to above. 4. Coccyx wound. 5. Dysphagia. PLAN: 1. The patient will continue to be in ICU where we will begin IV fluids. 2. We will also ask Speech to see the patient in consultation for her swallowing evaluation. 3. We will also get Wound Care consult to see and will also turn the patient every 2 hours. Keep he ad of bed up. 4. Continue vancomycin, Rocephin, and let Pharmacy dose the vancomycin. 5. We will also check blood sugars a.c. and at bedtime and use low dose regular insulin per protocol . 6. Dr. Major has already seen the patient. 7. We will also get a hold of family to update them. ADDENDUM: I would like to add, the original call I got about the patient was in the ER at 3:15 this morning. I was aware she was going to be going to ICU after emergent dialysis. However, when I the n called at 6:45 in the morning, nobody had called me to let me know she went to ICU. I spoke with watson arciniega legal administrative secretary and unfortunately the patient had already been up here since 4:15 in the morning and the y forgot to notify me. footwear sales leader was made aware of this as again I was not notified that the patie nt was in ICU.
[2018-04-01] MEDS ORDERED: Sterile Water 10 ML VIAL IVP SCH (09:30)
[2018-04-01] MEDS ORDERED: Activase 2 MG VIAL CATH SCH (09:30)
[2018-04-01] MEDS ORDERED: Pantoprazole 40 MG VIAL IVP SCH (09:45)
--- NOTE | 2018-04-01 09:51 | CON ---
DATE OF CONSULTATION: 04/01/2018 SERVICE: Pulmonary Medicine. REASON FOR CONSULTATION: ICU patient. HISTORY OF PRESENT ILLNESS: The patient is a 77-year-old white female who was in her usual state of health until a couple of weeks ago. She started having aversion for food and had some abdominal discomfort. She had a deep tissue injury to the sacrum. She actually had a CT scan of the belly demonstrating an inflammatory condition of the duodenum. She has known peptic ulcer disease. This was identified about 4 years ago. She presented back to the hospital with aversion for food. Last week, she was admitted for dehydration because they could not get her to eat anything. She was topped off and subsequently discharged home. She once again developed dehydration and presented back to the emergency department. Because of her encephalopathy and potassium of 8, she was tucked into the ICU. Emergent dialysis was performed overnight. The patient is completely obtunded and not really able to provide any additional elements of the history. PAST MEDICAL HISTORY: 1. Peptic ulcer disease. 2. Hypertension. 3. Diabetes mellitus. 4. Dyslipidemia. 5. Anemia. 6. Osteoarthritis. 7. Insomnia. 8. Peripheral neuropathy. PAST SURGICAL HISTORY: 1. Neck surgery. 2. Lumbar surgery x2. 3. Cholecystectomy. ALLERGIES: SULFA. MEDICATIONS: List of her inpatient medications were reviewed. Multiple updates were made. FAMILY HISTORY: Noncontributory. SOCIAL HISTORY: Negative for alcohol, tobacco or illicit drug use. She is in [place]. I really have no idea what her baseline is. It is my understanding that she gets out of bed into a wheelchair and/or chair, but needs some assistance with getting around. There is no report of dementia. REVIEW OF SYSTEMS: This cannot be obtained because the patient is encephalopathic. PHYSICAL EXAMINATION: VITAL SIGNS: Afebrile, pulse 112, blood pressure 83/55, respirations 19, saturation 92% on 2 liters nasal cannula. GENERAL: The patient is somnolent. She is encephalopathic and has strong vocalization with each exhalation. HEENT: Normocephalic, atraumatic. Sclerae are white, conjunctivae pink. Oral mucosa is dry. LUNGS: Excellent air entry. There is no hint of crackle. No prolonged expiratory phase, wheezing or rhonchi are present. HEART: Tachycardic. Regular. ABDOMEN: She is diffusely tender to palpation. I do not see any clear rebound. Bowel sounds are hypoactive. GENITOURINARY: Haines catheter in place. NEUROLOGIC: Encephalopathic, but nonfocal. LABORATORY DATA: Creatinine 8.2, chloride 118. Basic metabolic profile is otherwise unremarkable. Liver function studies are unremarkable. Ammonia is normal. Ionized calcium falls within the lower limits. WBC 17.9, hemoglobin 9.6, and platelets 276,000. INR 1.2. PH 7.32, pCO2 21, pO2 78. Urinalysis is positive for white blood cells. ASSESSMENT: 1. Peptic ulcer disease. 2. Abdominal pain. 3. Dehydration, severe. 4. Acute kidney injury. 5. Sacral decubitus ulcer, present on admission. 6. Hyperkalemia. 7. Type 2 diabetes mellitus. 8. Metabolic encephalopathy. DISCUSSION AND PLAN: We will initiate the patient on PPI twice daily. GI consultation will be placed. She is currently on dialysis, but remains extraordinarily dry. As such, we will continue IV hydration. She got 1 liter of fluid so far and I will give her another. Antibiotics have been empirically initiated. We will direct them at culture results that come back over the next couple of days. 70 minutes have been devoted to this patient in various activities. I personally reviewed all imaging studies and laboratory data noted within this document. For fifty percent of this time, I was interacting with the patient at the bedside or coordinating care with the care team. For the remainder of the time I was immediately available to the patient in the hospital unit. MITZI
[2018-04-01] MEDS ORDERED: VANCOMYCIN IVPB PRN (13:42)
[2018-04-01 14:27] LABS: Anion Gap 17 mmol/L (10-20); BUN (Urea Nitrogen) 71 mg/dL (9.8-20.1); Calc. Creatinine Clearance 12 mL/min (70-130); Calcium 8.4 mg/dL (7.8-10.44); Carbon Dioxide 15 mmol/L (23-31); Chloride 111 mmol/L (98-107); Estimated GFR-MDRD 12; Glucose 82 mg/dL (83-110); Potassium 5.1 mmol/L (3.5-5.1); Sodium 138 mmol/L (136-145)
[2018-04-01] MEDS ORDERED: cefTRIAXone\\ROCEPHIN 1 GM in Sodium Chloride 0.9% 100 ML IVPB SCH (15:00)
--- NOTE | 2018-04-01 17:12 | CON ---
DATE OF CONSULTATION: 04/01/2018 HISTORY OF PRESENT ILLNESS: Ms. Paula is a 77-year-old white female who was admitted for mental stat us change. During the initial evaluation, she was noted to be in acute kidney injury and hyperkalemi c. We are now being consulted for further management of this acute kidney injury as well as hyperkal emia. We are currently dialyzing this patient using a 1-0 potassium bath for the next 2 hours. REVIEW OF SYSTEMS: Could not be obtained since the patient is nonverbal and demented. PAST MEDICAL HISTORY: GERD, chronic anemia, hypertension, dementia, osteoporosis, type 2 diabetes me llitus, hyperlipidemia, history of neck surgery, history of peripheral neuropathy. PAST SURGICAL HISTORY: Includes back surgery x2, status post laparoscopic cholecystectomy. HOME MEDICATIONS: Includes the following: Trazodone 75 mg at bedtime, metformin 1000 mg p.o. b.i.d. , clonidine 0.1 mg p.o. b.i.d., Zocor 20 mg at bedtime, multivitamin daily, melatonin 2 mg at bedtime , Megace 400 mg p.o. b.i.d., hydrochlorothiazide 25 mg daily, gabapentin 400 mg p.o. t.i.d., carvedil ol 25 mg p.o. at bedtime and 12.5 mg p.o. b.i.d. SOCIAL HISTORY: Includes the following. The patient is currently a assisted patient at [facility]. She does not smoke. No alcohol intake, no drug abuse. She is . FAMILY HISTORY: Noncontributory. ALLERGIES: SULFA. TRAUMA: None. IMMUNIZATIONS: Up to date. HOSPITALIZATIONS: Please see past medical history. PHYSICAL EXAMINATION: VITAL SIGNS: Blood pressure noted at 83/55, heart rate 112, respiratory rate 19. GENERAL: Noted to be awake, but not following commands. She is noted to be moaning, but not in dist ress. SKIN: Adequate turgor. HEENT: She has pinkish conjunctivae, anicteric sclerae. NECK: No neck mass, no carotid bruits, no JVD. CHEST: No deformities. LUNGS: Clear breath sounds, no wheezing, no crackles. HEART: Tachycardic, no murmur, no gallops or rubs. ABDOMEN: Globular, soft, nontender. EXTREMITIES: No edema. LABORATORY AND X-RAY FINDINGS: Laboratories of 04/01/2018, white count 17.9, hemoglobin 9.6. Sodium 139, potassium 8.2, chloride 118, BUN is 116, creatinine 5.71, albumin 3.3. Urinalysis of 8 shows wbc greater than 50, no pigmented granular casts, protein is 100, specific gravity 1.015. ASSESSMENT AND PLAN: 1. Acute kidney injury -- possibility of a hemodynamically mediated renal dysfunction as suggested b y the low blood pressure, p.r.n., normal saline and boluses. Urinalysis suggests no evidence of acut e tubular necrosis. Continue supportive care. Patient is receiving hemodialysis due to the severe h yperkalemia. 2. Hyperkalemia. The patient is undergoing hemodialysis. My plan is to do a 2-hour hemodialysis us ing a 1-0 potassium bath. I do anticipate some improvement with the potassium with this maneuver. 3. Overall prognosis remains guarded. Patient has several comorbid problems as well as underlying d ementia. We will recheck base met and CBC in a.m.
[2018-04-01] MEDS: Dextrose 5 % And 0.9 % NaCl 1,000 ML IV SCH (20:19)
[2018-04-01] MEDS: Pantoprazole 40 MG VIAL IVP SCH (20:19)
[2018-04-01] MEDS ORDERED: Norepinephrine 8 MG/250 ML BAG IVPB PRN (22:57)
--- NOTE | 2018-04-02 03:30 | CON ---
DATE OF CONSULTATION: 04/01/2018 REASON FOR CONSULTATION: Abdominal pain, abnormal GI imaging. CONSULTING PHYSICIAN: Parish Fagan MD HISTORY OF PRESENT ILLNESS: The patient is a 77-year-old female with past medical history of hyperte nsion, hyperlipidemia, diabetes, osteoarthritis, peripheral neuropathy, chronic anemia, DVT/pulmonary embolism in the past, and peptic ulcer disease with a large duodenal ulceration seen in [place] with complaints of abdominal pain and abnormal GI imaging on admission. At the time of this int erview, the patient was currently unable to contribute to meaningful interview with all information o btained through chart review. Per chart review, the patient was in her usual state of health until a pproximately 2-3 weeks ago, when she started having increased abdominal discomfort and aversion for f ood. With this aversion for food, she had decreased oral intake that resulted in dehydration for whi ch she was seen in the ER approximately 1 week ago. However, with no change in her clinical status, when she was ultimately discharged, she came back on this admission again with dehydration, but also noted to have increased encephalopathy and hyperkalemia with a potassium of 8. She was subsequently admitted to the hospital for evaluation and noted to have a urinalysis consistent with a urinary trac t infection, which could be contributing to her encephalopathy, dehydration, and hyperkalemia. However, also on chart review, she was noted to have a CT of the abdomen and pelvis that was performe d on 02/20/2018 that showed thickening of the landaverde of the stomach, which were probably related to in complete distention, but there was also mild thickening involving the first and second portions of th e duodenum. Given her history of peptic ulcer disease with an EGD performed in 06/2015 showing a lar ge gastric ulcer with penetration into the anterior duodenal wall, this was concerning for recurrent ulcer disease. REVIEW OF SYSTEMS: A 10-category review of systems could not be obtained due to the patient's enceph alopathy and obtundation. PAST MEDICAL HISTORY: As per HPI. PAST SURGICAL HISTORY: Neck surgery, lumbar surgery x2, and cholecystectomy. FAMILY HISTORY: No mention of GI malignancies within the chart. SOCIAL HISTORY: Negative for alcohol, tobacco, or illicit drug use. OUTPATIENT MEDICATIONS: Reviewed. ALLERGIES: SULFA. PHYSICAL EXAMINATION: VITAL SIGNS: Temperature 98.2, pulse 106, blood pressure 90/46, respiratory rate 11, saturating 100% on room air. GENERAL: The patient is lying in bed in some distress with notable crying during examination. The p atient is semi-alert to her surroundings and verbal stimuli. Orientation could not be ascertained. NECK: Supple. No JVD noted. CARDIOVASCULAR: Tachycardic rate with regular rhythm. No discernible murmurs, gallops, or rubs. RESPIRATORY: Clear to auscultation bilaterally with no discernible wheezes or rales. ABDOMEN: Normoactive bowel sounds. Soft, nontender, nondistended, but did have some grimacing upon palpation in the periumbilical region. EXTREMITIES: No cyanosis, clubbing, or edema. LABORATORY DATA: CBC with a white blood cell count of 17.9, hemoglobin 9.6, hematocrit 29.5, platele ts 276. Chemistry with a sodium of 134, potassium 8.1, chloride 113, CO2 of 12, BUN 116, creatinine 5.71, glucose 90, AST 15, ALT 16, alkaline phosphatase 57, total bilirubin 0.4, lipase 63. Acute hep atitis panel, negative. Urinalysis consistent with a urinary tract infection. IMAGING DATA: No current GI imaging is available for review except for the CT abdomen and pelvis obt ained on 01/20/2018 as previously mentioned in this note. ASSESSMENT AND PLAN: The patient is a 77-year-old female with past medical history of hypertension, hyperlipidemia, diabetes with peripheral neuropathy, osteoarthritis, chronic anemia, DVT/pulmonary em bolism, and peptic ulcer disease on EGD in 2014, presenting with increased abdominal pain and abnorma l gastrointestinal imaging concerning for recurrent ulcer disease. Upper gastrointestinal ulcer disease. The patient is presenting with increased aversion to food inta ke resulting in dehydration and hyperkalemia with a history of peptic ulcer disease. She also has a recent CT scan obtained on 02/20/2018 showing mild thickening of the gastric antrum and first and sec ond portions of the duodenum concerning for recurrent ulcer disease that was seen on EGD in 2014. Ho wever, she is currently presenting with tachycardia and hypotension with a urinary tract infection no xena on labs concerning for urosepsis, for which she is currently on appropriate antibiotic and IV flu id administration. She was also noted to have significant hyperkalemia on admission and elevated BUN and creatinine, for which she is going to undergo dialysis tomorrow. At this point, she will be hig h risk for any sort of endoscopic procedure and does require a little bit more time with both antibio tic administration and fluids prior to endoscopic evaluation. Currently, with physical exam that is not consistent with a surgical abdomen and/or perforated viscus. RECOMMENDATIONS: 1. We would continue to trend H&H and transfuse as necessary to maintain an H&H of 7/21. 2. Continue to monitor clinically for signs of GI bleeding and/or worsening of her abdominal pain to indicate possible perforation. 3. Continue with antibiotic and IV fluid administration as prior treatment for probable sepsis. 4. We will continue to reassess daily in terms of safety regarding upper endoscopy. She will need a n upper endoscopy during this admission to evaluate for possible peptic ulcer disease given her abdom inal pain and imaging findings from last month. 5. We would continue the patient on PPI b.i.d. for now. 6. We would consider placement of Dobbhoff tube for nutritional purposes if deemed necessary per ICU team. We will continue to follow. Please call with any additional questions.
[2018-04-02] MEDS: cefTRIAXone\\ROCEPHIN 1 GM in Sodium Chloride 0.9% 100 ML IVPB SCH (03:59)
[2018-04-02] MEDS ORDERED: Vancomycin HCl 1 GM in Premix Bag 1 BAG IVPB SCH (04:00)
[2018-04-02] MEDS: Dextrose 5 % And 0.9 % NaCl 1,000 ML IV SCH (04:00)
[2018-04-02 04:47] LABS: ALT (SGPT) 12 U/L (8-55); AST (SGOT) 16 U/L (5-34); Albumin 2.4 g/dL (3.4-4.8); Alkaline Phosphatase 48 U/L (40-150); Anion Gap 13 mmol/L (10-20); BUN (Urea Nitrogen) 63 mg/dL (9.8-20.1); Bilirubin, Total 0.2 mg/dL (0.2-1.2); Calc. Creatinine Clearance 15 mL/min (70-130); Calcium 8.4 mg/dL (7.8-10.44); Carbon Dioxide 15 mmol/L (23-31); Chloride 119 mmol/L (98-107); Estimated GFR-MDRD 15; Globulin 3.1 g/dL (2.4-3.5); Glucose 160 mg/dL (83-110); Potassium 4.6 mmol/L (3.5-5.1); Protein, Total 5.5 g/dL (6.0-8.3); Sodium 142 mmol/L (136-145)
[2018-04-02 05:26] LABS: #Basophils 0.1 thou/uL (0.0-0.2); #Eosinphils 0.1 thou/uL (0.0-0.7); #Lymphocytes 0.8 thou/uL (1.20-3.40); #Monocytes 0.7 thou/uL (0.11-0.59); #Neutrophils 9.6 thou/uL (1.40-6.50); %Basophils 1.2 % (0.0-1.0); %Lymphocytes 7.4 % (21.0-51.0); %Monocytes 5.8 % (0.0-10.0); %Neutrophils 84.6 % (42.0-75.0); Hemoglobin 6.8 g/dL (12.0-16.0); Mean Corpuscular HGB CONC 32.5 g/dL (32.0-36.0); Mean Corpuscular Hemoglobin 31.5 pg (27.0-31.0); Mean Platelet Volume 6.5 fL (7.4-10.4); Platelet Count 177 thou/uL (130-400); RBC Distribution Width 13.9 % (11.5-14.5); Red Blood Cell (RBC) Count 2.15 mill/uL (4.20-5.40); White Blood Cell (WBC) Count 11.3 thou/uL (4.8-10.8)
[2018-04-02 06:50] LABS: Vancomycin, Trough 10.7 ug/mL
--- NOTE | 2018-04-02 08:36 | PRG ---
DATE OF SERVICE: 04/02/2018 SUBJECTIVE: The patient had a good night; however, her blood pressure dropped in the 60s and Levophe d had to be initiated. Now, her blood pressure is normalized in the 100s. She is more awake today. She is following commands. She denies any discomfort. PHYSICAL EXAMINATION: GENERAL: She is awake. VITAL SIGNS: Her blood pressure is 100. She is on Levophed drip. There is no family here at [facility]. COR: Tachy rhythm. CHEST: Symmetrical. Clear to auscultation and percussion upper lobes. ABDOMEN: Soft, nontender with normoactive bowel sounds. There is no bruit or organomegaly. EXTREMITIES: No edema or cyanosis. She had palpable pedal pulses. SKIN: She still has the same ulcer on her coccyx. NEURO: She is awake and alert and oriented to person, place, and time. LABORATORY DATA: Her hemoglobin is 6.8 and 20.9, her platelets 177. White blood cell is 11.3. Her BUN 63, creatinine 2.96, glucose 160. ASSESSMENT: 1. Acute renal failure. 2. Altered level of consciousness secondary to above. 3. Anemia of chronic disease. 4. Hypotension. 5. Urinary tract infection. 6. Sepsis. 7. Multiple medical problems. PLAN: We will go ahead and type and cross for 2 units of blood and give blood. Appreciate all consu ltants following. We will follow up with lab in the morning.
[2018-04-02] MEDS ORDERED: Prevnar 13-Val Conj/PF 0.5 ML SYRINGE IM ONE (09:00)
[2018-04-02] MEDS: Pantoprazole 40 MG VIAL IVP SCH ×2 (10:07→21:04)
--- NOTE | 2018-04-02 10:25 | PRG ---
DATE OF SERVICE: 04/02/2018 SERVICE: Pulmonary Medicine INTERVAL HISTORY: The patient had a couple episodes of low blood pressure overnight which responded to a couple liters of fluid. She ended up getting put on some Levophed, which was titrated off. She denies any current chest pain , nausea or vomiting. Her brain is starting to perk up a little bit. She completed dialysis yesterday. PHYSICAL EXAMINATION: VITAL SIGNS: Afebrile, pulse 100, blood pressure 115/60, respirations 10, saturation 100% on 2 liters nasal cannula. GENERAL: The patient is awake. She is alert. She is oriented x0. HEENT: Normocephalic, atraumatic. Sclerae are white, conjunctivae pink. Oral mucosa is moist without lesions. LUNGS: Decent air entry. No crackles, wheezing or rhonchi appreciated. There is no prolonged expiratory phase. HEART: Normal rate, regular. ABDOMEN: Soft, nontender, nondistended. Bowel sounds are positive. MUSCULOSKELETAL: No cyanosis or clubbing. There is no pitting in the bilateral lower extremities. NEUROLOGIC: Grossly nonfocal. LABORATORY DATA: WBC 11.3, hemoglobin 6.8, platelets 177,000. Creatinine 2.96 and down trending, BUN 63, bicarb 15, chloride 119 and up trending dramatically. Urinalysis is positive for white blood cells. Vancomycin is 10.7. Serologies are all unremarkable. Blood cultures x2 and urine culture remain negative. ASSESSMENT: 1. Peptic ulcer disease, history of. 2. Acute hypoxic respiratory failure. 3. Metabolic encephalopathy, improving. 4. Dehydration, severe. 5. Acute kidney injury, with good urine output. 6. Decubitus ulcer/deep tissue injury, present on admission. 7. Hyperkalemia, resolved after dialysis. 8. Type 2 diabetes mellitus. DISCUSSION AND PLAN: We will continue PPI b.i.d. We will also continue supportive care. I will switch her IV fluids over to D5 half normal saline. Hopefully, we will be able to plump upper intracellular space and once we do her brain should start functioning a little bit better. I will get a random cortisol level tomorrow morning to make certain that we do not have a deficiency there. MTDD
--- NOTE | 2018-04-02 12:00 | PRG ---
DATE OF SERVICE: 04/02/2018 SERVICE: Renal Medicine. SUBJECTIVE: Ms. Paula is a 77-year-old white female who was seen for her acute kidney injury and sev ere hyperkalemia. She underwent emergent hemodialysis yesterday. Potassium is much better. She was also noted to be on the hypotensive side. We have been giving volume repletion with this patient. Currently, we have started on Levophed. Wound care was consulted due to the sacral decubitus. She i s currently at stage IV. We will plan to do a surgical consult. No other complaints. PHYSICAL EXAMINATION: VITAL SIGNS: Blood pressure is noted at 115/60, heart rate 100, respiratory rate 10, pulse ox 100%. GENERAL: Awake, lethargic, not in overt distress. SKIN: Decreased turgor. HEENT: She has pale conjunctivae, anicteric sclerae. NECK: No neck mass, no carotid bruits, no JVD. CHEST: No deformities. LUNGS: Clear breath sounds. HEART: Normal sinus rhythm. No murmur, no gallops, no rubs. ABDOMEN: Globular, soft, nontender, no masses. EXTREMITIES: No edema. BACK: Positive for stage IV decubitus ulcer. MEDICATIONS: Of 04/02/2018 was reviewed. LABORATORY DATA: Of 04/02/2018, white count 11.3, hemoglobin 6.8. Sodium 142, potassium 4.6, chlori de 119, carbon dioxide 15, BUN 63, creatinine 2.96. LFT normal. ASSESSMENT AND PLAN: 1. Acute kidney injury/hyperkalemia, stable. We will hold off hemodialysis today due to the relativ lukasz low blood pressure. Continue volume repletion. Continue pressor support. 2. Sacral decubitus. Surgical consult. 2. Hyperkalemia, much improved with dialysis. Overall, prognosis remains guarded. 3. Anemia. We will transfuse 1 unit of packed RBC.
[2018-04-02] MEDS: Dextrose 5 %-0.45 % NaCl 1,000 ML IV SCH ×2 (13:11→21:04)
[2018-04-02] MEDS: Vancomycin HCl 500 MG in Sodium Chloride 0.9% 100 ML IVPB SCH (13:14)
--- NOTE | 2018-04-02 13:36 | CON ---
DATE OF CONSULTATION: 04/02/2018 CHIEF COMPLAINT: Septic decubitus. HISTORY OF PRESENT ILLNESS: This is a 77-year-old female transferred from a custodial with sepsis and renal failure as well as UTI. She was found to have septic sacral decubitus. PAST MEDICAL HISTORY: Hypertension, neuralgia, diabetes, hyperlipidemia, dementia, arthritis. PAST SURGICAL HISTORY: She had neck surgery, lumbar spine surgery and cholecystectomy. MEDICATIONS: Includes ceftriaxone, insulin, vancomycin, Levophed, Protonix. ALLERGIES: She has an allergy to SULFA. FAMILY HISTORY: Coronary artery disease. SOCIAL HISTORY: She is a resident at [facility]. No tobacco or alcohol. FAMILY HISTORY: Coronary artery disease. PHYSICAL EXAMINATION: VITAL SIGNS: Temperature 97.7, pulse 106, and blood pressure 106/43. GENERAL: She is lethargic. She will moan. HEENT: Otherwise, unremarkable. LUNGS: Clear. HEART: Regular rate and rhythm. ABDOMEN: Soft, nondistended, and nontender. She has a 6 x 3 cm necrotic sacral decubitus. EXTREMITIES: Unremarkable. LABORATORY DATA: White count 11.3, hemoglobin and hematocrit 6.8 and 20, and her platelet count 177. Electrolytes, her creatinine is 2.96, BUN is 63, and glucose of 160. ASSESSMENT: Septic decubitus. PLAN: Surgical debridement, type and cross, n.p.o. after midnight.
--- NOTE | 2018-04-02 21:14 | PRG ---
DATE OF SERVICE: 04/02/2018 REASON FOR CONSULTATION: Abnormal GI imaging. SUBJECTIVE: Overnight, the patient had significantly low blood pressure, which initially responded t o IV fluid administration, but subsequently continued to fall requiring the use of pressor support an d ended up being placed on Levophed. She did complete dialysis yesterday with no acute events during that part of her treatment. She is currently minimally responsive, but does respond to some verbal and noxious stimuli. OBJECTIVE: VITAL SIGNS: Temperature 99.7, heart rate 94, blood pressure 140/80, respiratory rate 10, satting 10 0% on room air. GENERAL: The patient is lying in bed in no acute distress, minimally responsive to verbal stimuli. CARDIOVASCULAR: Tachycardic rate with regular rhythm. No discernible murmurs, gallops or rubs. RESPIRATORY: Clear to auscultation bilaterally. ABDOMEN: Normoactive bowel sounds, soft, nontender, nondistended. EXTREMITIES: No cyanosis, clubbing or edema. LABORATORY DATA: CBC with a white blood cell count of 11.3, hemoglobin 6.8, hematocrit 20.9, platele ts 177,000. Chemistry with a sodium of 142, potassium 4.6, chloride 119, CO2 15, BUN 63, creatinine 2.96, glucose 160. IMAGING DATA: No current GI imaging is available for review. ASSESSMENT AND PLAN: The patient is a 77-year-old female with past medical history of hypertension, hyperlipidemia, diabetes with peripheral neuropathy, osteoarthritis, chronic anemia, deep vein thromb osis/pulmonary embolism, severe sacral decubitus ulceration and peptic ulcer disease on EGD in 2014, presenting with increased abdominal pain and abnormal GI imaging concerning for recurrent ulcer disea se. Possible recurrent ulcer disease: The patient was initially presenting with increased aversion to fo od intake resulting in dehydration and hyperkalemia; however, during this admission, she has had a fa irly complicated course with significant bouts of hypotension requiring pressor support, does have a fairly significant sacral decubitus ulceration for which she is undergoing surgical debridement tomor row as well as significant drop in her H&H without any evidence of active gastrointestinal bleeding c onsistent with hematemesis, melena or hematochezia. Given the CT scan obtained in January 2018 that sh owed mild thickening of the gastric antrum as well as thickening of the first and second portions of the duodenum, it is concern for recurrent ulcer disease, although I think this is unlikely as to caus e her significant drop in her H&H without any clinical evidence of gastrointestinal bleeding. Given her significant hypotension, she is high risk for any sort of endoscopic procedure and may not necess arily be a suitable candidate for endoscopic intervention outside of the operating room. However, if she does continue have decreased H&H, then upper endoscopy would be indicated. RECOMMENDATIONS: 1. We would continue to trend H&H and transfuse as necessary to maintain an H&H of 7/. 2. Continue to monitor clinically for signs of active gastrointestinal bleeding. 3. Continue with antibiotic and IV fluid administration as treatment for probable sepsis. 4. We will continue to reassess daily for possibility of upper endoscopy. 5. Continue the patient on PPI b.i.d. for now. We will continue to follow. Please call with any additional questions.
[2018-04-03] MEDS: cefTRIAXone\\ROCEPHIN 1 GM in Sodium Chloride 0.9% 100 ML IVPB SCH (03:29)
[2018-04-03] MEDS: Dextrose 5 %-0.45 % NaCl 1,000 ML IV SCH ×2 (05:42→15:36)
[2018-04-03 05:43] LABS: ALT (SGPT) 15 U/L (8-55); AST (SGOT) 25 U/L (5-34); Albumin 2.4 g/dL (3.4-4.8); Alkaline Phosphatase 53 U/L (40-150); Anion Gap 10 mmol/L (10-20); BUN (Urea Nitrogen) 43 mg/dL (9.8-20.1); Bilirubin, Total 0.3 mg/dL (0.2-1.2); Calc. Creatinine Clearance 21 mL/min (70-130); Calcium 8.9 mg/dL (7.8-10.44); Carbon Dioxide 16 mmol/L (23-31); Chloride 120 mmol/L (98-107); Estimated GFR-MDRD 23; Globulin 3.2 g/dL (2.4-3.5); Glucose 125 mg/dL (83-110); Potassium 4.3 mmol/L (3.5-5.1); Protein, Total 5.6 g/dL (6.0-8.3); Sodium 142 mmol/L (136-145)
[2018-04-03 05:49] LABS: #Eosinphils 0.1 thou/uL (0.0-0.7); #Lymphocytes 1.4 thou/uL (1.20-3.40); #Monocytes 0.6 thou/uL (0.11-0.59); #Neutrophils 6.6 thou/uL (1.40-6.50); %Basophils 0.2 % (0.0-1.0); %Eosinophils 1.5 % (0.0-10.0); %Lymphocytes 15.8 % (21.0-51.0); %Monocytes 6.5 % (0.0-10.0); %Neutrophils 75.9 % (42.0-75.0); Mean Corpuscular HGB CONC 32.6 g/dL (32.0-36.0); Mean Corpuscular Hemoglobin 30.1 pg (27.0-31.0); Mean Corpuscular Volume 92.6 fl (81.0-99.0); Mean Platelet Volume 6.6 fL (7.4-10.4); Platelet Count 148 thou/uL (130-400); Red Blood Cell (RBC) Count 2.66 mill/uL (4.20-5.40); White Blood Cell (WBC) Count 8.7 thou/uL (4.8-10.8)
[2018-04-03] MEDS: Pantoprazole 40 MG VIAL IVP SCH ×2 (08:58→20:07)
--- NOTE | 2018-04-03 10:59 | PRG ---
DATE OF SERVICE: 04/03/2018 SUBJECTIVE: Ms. Paula will awaken. When I asked her how she is doing, she said fine. She has a res ting tremor. OBJECTIVE: VITAL SIGNS: She is afebrile, blood pressure is 131/56, heart rate is 96, respiratory rate is 14, ox imetry is 100% on 2 liters. LUNGS: Clear anteriorly. HEART: Regular rhythm. ABDOMEN: Soft. EXTREMITIES: Without clubbing, cyanosis or asymmetry. BACK: Apparently, she has a massive sacral decubitus. Surgery is contemplated for debridement, but the daughter is undecided apparently about whether or not she wanted to have surgery. LABORATORY DATA: White count is 8.7, hemoglobin 8.0, platelet count 148,000. Sodium 143, potassium 4.3, chloride 120, bicarbonate 16, BUN 43, creatinine 2.1. IMPRESSION: 1. Very large decubitus ulcer, but the family unable to decide about surgery. She is not critically ill and does not require intensive nursing care at this point in time, so she will be transferred ou t of the Critical Care Unit. 2. Hypertension. 3. Diabetes. 4. Lipid disorder. 5. Tremor. 6. Anemia and thrombocytopenia. 7. Intravascular volume depletion on presentation with improved renal function. Creatinine is 5.7-2 .1 over 4 days. 8. Hyperchloremic acidosis. Fluids are now half normal saline, this should gradually correct. She is stable to move to a medical bed in my opinion, would be careful with vancomycin given her welder repair trudi kidney disease. As per the family does not want surgery, then comfort care would be the best option. If this wound n eeds debridement, all the antibiotics in the hospital are going to fix the problem. It must be noted that her blood cultures are negative, so she was not septic with this. She does hav e a urinary tract infection, which is not surprising and also yeast colonization of her bladder. We will put in transfer orders to move her out of the Critical Care Unit.
--- NOTE | 2018-04-03 12:27 | PRG ---
DATE OF SERVICE: 04/03/2018 SERVICE: Renal Medicine. SUBJECTIVE: Ms. Paula is a 77-year-old white female, who was seen by the Renal Service for acute kid dimas injury and severe hyperkalemia. She underwent hemodialysis at that time. The following day, her renal function was noted to be improving and the hyperkalemia was resolved. Since she was diuresing , we decided to hold off the dialysis. She has also significant sacral decubitus - stage 4. Surgica l consult has been declined by the family. No other complaints today. The patient is more awake. OBJECTIVE: VITAL SIGNS: Blood pressure is 120/53, heart rate 101, respiratory rate 20, pulse ox 100%. GENERAL EXAM: Noted to be awake, responsive to verbal stimuli, not in distress. SKIN: Adequate turgor. HEENT: She has a slightly pale conjunctivae, anicteric sclerae. NECK: No neck mass, no carotid bruits, no JVD. CHEST: No deformities. LUNGS: Clear breath sounds. HEART: Normal sinus rhythm. ABDOMEN: Globular, soft, nontender. EXTREMITIES: No edema. BACK: Positive for stage 4 sacral decubitus ulcer. Medications of 04/03/2018 was reviewed. LABORATORY DATA: Laboratories of 04/03/2018, white count 8.7, hemoglobin 8. Sodium 142, potassium 4 .3, chloride 120, carbon dioxide 16, BUN 43, creatinine 2.1, glucose 23. LFTs normal. ASSESSMENT AND PLAN: 1. Acute kidney injury/hyperkalemia much improved. Continue to hold hemodialysis. Continue support mateus care. 2. Sacral decubitus - the patient's family is hesitant to proceed with any surgery. As previously m entioned, they can opt for palliative care. Continue supportive care.
[2018-04-03] MEDS: Vancomycin HCl 500 MG in Sodium Chloride 0.9% 100 ML IVPB SCH (16:47)
[2018-04-03] MEDS: Acetaminophen 1,000 MG in Premix Bag 1 BAG IVPB PRN (17:42)
--- NOTE | 2018-04-03 23:23 | PRG ---
DATE OF SERVICE: 04/03/2018 REASON FOR CONSULTATION: Abnormal GI imaging. SUBJECTIVE: No acute events or problems overnight. Upon interview today, the patient was still mini neo responsive to interview and questions. She was scheduled for debridement of a stage 4 sacral d ecubitus ulcer today, but per conferring with family, the patient's family has decided to defer any i nvasive therapies at this time. OBJECTIVE: VITAL SIGNS: Temperature 97.9, pulse 99, blood pressure 146/67, respiratory rate 20, satting 100% on 2 liters nasal cannula. GENERAL: The patient is lying in bed, in no acute distress. CARDIOVASCULAR: Regular rate and rhythm. RESPIRATORY: Clear to auscultation bilaterally. ABDOMEN: Normoactive bowel sounds. EXTREMITIES: No cyanosis, clubbing or edema. LABORATORY DATA: CBC with a white blood cell count of 8.7, hemoglobin 8, hematocrit 24.6, platelets 148. Chemistry with a sodium of 142, potassium 4.3, chloride 120, CO2 of 16, BUN 43, creatinine 2.1, glucose 125. IMAGING DATA: No current GI imaging is available for review. ASSESSMENT AND PLAN: The patient is a 77-year-old female with past medical history of hypertension, hyperlipidemia, diabetes with peripheral neuropathy, osteoarthritis, chronic anemia, deep vein thromb osis/pulmonary embolism, stage 4 sacral decubitus ulceration and peptic ulcer disease seen on EGD in 2014, presenting with increased abdominal pain and abnormal imaging of the stomach/duodenum concernin g for recurrent ulcer disease. Possible recurrent ulcer disease: The patient initially presented with an increased aversion to food intake and mildly increased abdominal pain resulting in dehydration with hyperkalemia. During this admission, she has had a fairly complicated course with significant bouts of hypotension requiring in termittent pressor support, stage 4 decubitus ulceration. It was scheduled for debridement, but abor xena due to family preference. Decreased drop in her H&H without any evidence of active gastrointesti nal bleeding and hyperkalemia that initially required hemodialysis for correction. She was transfuse d 2 units of PRBCs within the last 24 hours and responded appropriately towards that infusion. Curre ntly, without any evidence of GI bleeding. However, CT scan obtained in 01/2018 showed mild thickeni ng of the gastric antrum and proximal duodenum concerning for recurrent ulcer disease with her recent drop in H&H. I think it is unlikely to the cause by recurrent peptic ulcer disease that I cannot ru le it out at this time. Given her improvement in clinical status, endoscopic therapy may be attempte d, but I will need to confer with family as to whether or not to proceed. RECOMMENDATIONS: 1. We would continue to trend H&H and transfuse as necessary to maintain an H&H of 05/22. 2. Continue to monitor clinically for signs of active gastrointestinal bleeding. 3. Continue with antibiotic and IV fluid administration for treatment of possible sepsis. 4. We will confer with family about possible upper endoscopy for the evaluation of gastric wall thic kening and thickening of the proximal duodenum. 5. Continue patient on PPI b.i.d. for now. We will continue to follow. Please call with any additional questions.
[2018-04-04] MEDS: Dextrose 5 %-0.45 % NaCl 1,000 ML IV SCH ×3 (02:15→17:45)
[2018-04-04] MEDS: cefTRIAXone\\ROCEPHIN 1 GM in Sodium Chloride 0.9% 100 ML IVPB SCH (02:19)
[2018-04-04] MEDS: Acetaminophen 1,000 MG in Premix Bag 1 BAG IVPB PRN (04:33)
[2018-04-04 05:29] LABS: #Eosinphils 0.1 thou/uL (0.0-0.7); #Lymphocytes 1.4 thou/uL (1.20-3.40); #Monocytes 0.4 thou/uL (0.11-0.59); #Neutrophils 4.9 thou/uL (1.40-6.50); %Basophils 0.3 % (0.0-1.0); %Eosinophils 1.5 % (0.0-10.0); %Lymphocytes 19.9 % (21.0-51.0); %Monocytes 6.3 % (0.0-10.0); Hemoglobin 7.6 g/dL (12.0-16.0); Mean Corpuscular HGB CONC 33.1 g/dL (32.0-36.0); Mean Corpuscular Hemoglobin 30.8 pg (27.0-31.0); Mean Platelet Volume 6.8 fL (7.4-10.4); Platelet Count 143 thou/uL (130-400); Red Blood Cell (RBC) Count 2.46 mill/uL (4.20-5.40); White Blood Cell (WBC) Count 6.8 thou/uL (4.8-10.8)
[2018-04-04 05:36] LABS: Anion Gap 10 mmol/L (10-20); BUN (Urea Nitrogen) 29 mg/dL (9.8-20.1); Calc. Creatinine Clearance 31 mL/min (70-130); Calcium 8.6 mg/dL (7.8-10.44); Carbon Dioxide 14 mmol/L (23-31); Chloride 119 mmol/L (98-107); Estimated GFR-MDRD 30; Glucose 101 mg/dL (83-110); Potassium 4.2 mmol/L (3.5-5.1); Sodium 139 mmol/L (136-145)
[2018-04-04] MEDS: Pantoprazole 40 MG VIAL IVP SCH ×2 (08:58→19:59)
--- NOTE | 2018-04-04 09:51 | PRG ---
DATE OF SERVICE: 04/04/2018 Eloisa Effie [facility] dictating for Branden Carr M.D. SUBJECTIVE: The patient is awake. She is crying in pain. Tylenol was ordered for pain; however, th at is not helping. Wound care is at bedside cleaning her wound. PHYSICAL EXAMINATION: GENERAL: Upon evaluation, she is awake, alert, and oriented to person, place, and time. VITAL SIGNS: Blood pressure 140/70, pulse 90, respiratory rate 20. She is afebrile. NECK: Supple with no increased JVP or carotid bruit. Carotid had good upstroke, no thyromegaly. COR: Regular rhythm. CHEST: Symmetrical. Clear to auscultation and percussion. ABDOMEN: Soft, nontender with normoactive bowel sounds. There is no bruit or organomegaly. EXTREMITIES: No edema or cyanosis. SKIN: No evidence of skin rash or lesion. She did have some swelling in her arms, probably related to some fluid. NEUROLOGIC: She is awake, alert, and oriented to person, place, and time. The wound now has a dress ing on it. I cannot comment on the wound. LABORATORY DATA: Showed a hemoglobin of 7.6 and 22.8. Her BUN 29 and creatinine is better at 1.67. Her blood sugar is 105. ASSESSMENT: 1. Yeast in urine. 2. Decubitus ulcer. 3. Hypotension, improved. 4. Acute renal failure, improved. 5. Sepsis. 6. Dysphagia. 7. Pain. 8. Anemia. PLAN: The patient is now DNR. All physicians are leaning towards comfort care only. We will change her IV fluid rate to 30 mL an hour. We will give her a pureed diet. We will follow up with lab in the morning. We will also give tramadol for pain. The patient has a poor prognosis. I spoke with Francis evans, the patient's daughter, at length. She seems disconnected. Also, I note Dr. Woodward and some o f the physicians have spoken with her as well. We will continue comfort measures for now and talk to Sandra again next week regarding hospice.
[2018-04-04] MEDS: traMADol HCl 50 MG TAB PO PRN ×2 (10:36→17:39)
--- NOTE | 2018-04-04 11:21 | PRG ---
DATE OF SERVICE: 04/04/2018 REASON FOR CONSULTATION: Abnormal GI imaging, anemia. SUBJECTIVE: No acute events or problems overnight. However, upon talking with the patient this morn ing, she is more responsive to simple commands and questions. She does endorse pain on her bottom in reference to the stage 4 sacral decubitus ulcer. Per nursing staff, she has not had a bowel movemen t over the last 24 hours with no evidence of hematochezia or melena. OBJECTIVE: VITAL SIGNS: Temperature 98.6, pulse 95, blood pressure 142/73, respiratory rate 20, satting 100% on 2 liters nasal cannula. GENERAL: The patient is lying in bed with mild distress and moaning intermittently. CARDIOVASCULAR: Regular rate and rhythm. RESPIRATORY: Clear to auscultation bilaterally. ABDOMEN: Normoactive bowel sounds, soft, mild tenderness to palpation in mid epigastric region. EXTREMITIES: No cyanosis, clubbing or edema. LABORATORY DATA: CBC with a white blood cell count of 6.8, hemoglobin 7.6, hematocrit 22.8, platelet s 143. Chemistry with a sodium of 139, potassium 4.2, chloride 119, CO2 14, BUN 29, creatinine 1.67, glucose 101. IMAGING DATA: No current GI imaging is available for review. ASSESSMENT AND PLAN: The patient is a 77-year-old female with past medical history of hypertension, hyperlipidemia, diabetes with peripheral neuropathy, osteoarthritis, chronic anemia, deep vein thromb osis/pulmonary embolism, stage 4 sacral decubitus ulceration and peptic ulcer disease (diagnosed in 2 015), presenting with increased abdominal pain and abnormal imaging of the stomach/duodenum concernin g for recurrent ulcer disease. Possible recurrent ulcer disease. The patient initially presented with aversion to food and abdomina l pain concerning for GI process. She had a CT scan in 01/2018, which showed thickening of the dista l stomach and proximal small intestine concerning for recurrence of peptic ulcer disease that was see n in a similar fashion in 2014. She also does have a slight drop in her H&H that is slowly down tren ding over the last 48-72 hours. She did get transfused with 2 units PRBCs within the last 24 hours, but again her H&H continues to downtrend now whether or not that is due to the presence of peptic ulc er disease and bleeding in the GI tract versus blood loss and anemia of chronic disease related to he r sacral decubitus ulceration. It is unknown. However, she does not currently have any melena or he matochezia that lends itself more towards a diagnosis of active gastrointestinal bleeding. I spoke w ith the patient's daughter/medical power of traffic law attorney at length about her mother's care and there was a fair amount of confusion associated with the plan of action and the benefits and risks of the diffe rent modalities associated with current care for her mom. I explained the possibility of bleeding fr om this possible peptic ulcer disease that could contribute to her anemia, but I also explained the r isks and benefits of endoscopy to further evaluate this particular problem. At this point, she is mo re inclined to monitor the patient's situation and proceed with endoscopic therapy if her H&H continu es to downtrend or if there is overt evidence of GI bleeding. RECOMMENDATIONS: 1. We would continue to trend H&H and transfuse as necessary to maintain an H&H of 7/21. 2. Continue to monitor clinically for signs of active gastrointestinal bleeding. 3. Continue with antibiotic and IV fluid administration for treatment of probable sepsis related to sacral decubitus ulceration. 4. Per medical power of traffic law attorney preference, we will hold off on endoscopic intervention for now, bu t I will keep the patient's daughter apprised about any changes in her mother's clinical status and n eed for endoscopy if should arise. 5. Continue patient on PPI b.i.d. for now. 6. We would recommend having a multidisciplinary meeting with the patient's medical power of attorne y to explain current goals of care and alternative/options for care as there seems to be some confusi on in terms of what should and/or could be done next for her mom. We will continue to follow. Please call with any questions.
--- NOTE | 2018-04-04 12:48 | PRG ---
DATE OF SERVICE: 04/04/2018 SUBJECTIVE: Ms. Mary Jane Paula is clinically unchanged. No family at the bedside. OBJECTIVE: VITAL SIGNS: She is afebrile, heart rate is 89, respiratory rate is 16, oximetry is 100% on room air , blood pressure 139/78. LUNGS: Unchanged. HEART: Unchanged. ABDOMEN: Unchanged. ASSESSMENT AND PLAN: I feel that her care from here forward should be more towards palliative and co mfort care. No invasive workup of any of her problems should be entertained in my opinion. I would treat the anemia in an extremely conservative fashion. Considering that her current quality of life and clinical condition, I think she would be almost of prohibitive risk for any procedures.
[2018-04-05] MEDS: traMADol HCl 50 MG TAB PO PRN ×3 (00:29→12:32)
[2018-04-05] MEDS: cefTRIAXone\\ROCEPHIN 1 GM in Sodium Chloride 0.9% 100 ML IVPB SCH (02:03)
[2018-04-05 04:51] LABS: ALT (SGPT) 30 U/L (8-55); AST (SGOT) 39 U/L (5-34); Albumin 2.2 g/dL (3.4-4.8); Alkaline Phosphatase 51 U/L (40-150); Anion Gap 8 mmol/L (10-20); BUN (Urea Nitrogen) 25 mg/dL (9.8-20.1); Bilirubin, Total 0.2 mg/dL (0.2-1.2); Calc. Creatinine Clearance 34 mL/min (70-130); Calcium 8.3 mg/dL (7.8-10.44); Carbon Dioxide 15 mmol/L (23-31); Chloride 119 mmol/L (98-107); Estimated GFR-MDRD 33; Globulin 2.6 g/dL (2.4-3.5); Glucose 80 mg/dL (83-110); Potassium 4.1 mmol/L (3.5-5.1); Protein, Total 4.8 g/dL (6.0-8.3); Sodium 138 mmol/L (136-145)
[2018-04-05 05:03] LABS: #Eosinphils 0.1 thou/uL (0.0-0.7); #Lymphocytes 1.4 thou/uL (1.20-3.40); #Monocytes 0.5 thou/uL (0.11-0.59); #Neutrophils 3.2 thou/uL (1.40-6.50); %Basophils 0.2 % (0.0-1.0); %Eosinophils 2.1 % (0.0-10.0); %Lymphocytes 26.5 % (21.0-51.0); %Monocytes 9.6 % (0.0-10.0); %Neutrophils 61.7 % (42.0-75.0); Hemoglobin 6.8 g/dL (12.0-16.0); Mean Corpuscular HGB CONC 32.6 g/dL (32.0-36.0); Mean Corpuscular Hemoglobin 30.4 pg (27.0-31.0); Mean Corpuscular Volume 93.3 fl (81.0-99.0); Mean Platelet Volume 6.6 fL (7.4-10.4); Platelet Count 114 thou/uL (130-400); Red Blood Cell (RBC) Count 2.24 mill/uL (4.20-5.40); White Blood Cell (WBC) Count 5.2 thou/uL (4.8-10.8)
[2018-04-05 07:21] VITALS: BP 161/68; TEMP 98.2
[2018-04-05] MEDS: Pantoprazole 40 MG VIAL IVP SCH (08:21)
--- NOTE | 2018-04-05 13:26 | PRG ---
DATE OF SERVICE: 04/05/2018 REASON FOR CONSULTATION: Abnormal GI imaging, anemia. SUBJECTIVE: No acute events or problems overnight. Upon interviewing the patient this morning, she is somewhat more responsive to commands and is more interactive when compared to previous. She curre ntly denies any pain, but per nursing staff has been sleeping for most of the day over the last 24-48 hours. Per nursing staff, she has also not had a bowel movement over the last 24 hours with no evid ence of gastrointestinal bleeding. OBJECTIVE: VITAL SIGNS: Temperature 98.2, pulse 80, blood pressure 161/68, respiratory rate 16, satting 97% on room air. GENERAL: Patient is lying in bed on her right side in no acute distress. CARDIOVASCULAR: Regular rate and rhythm. RESPIRATORY: Clear to auscultation bilaterally. ABDOMEN: Normoactive bowel sounds, soft, nontender, nondistended. EXTREMITIES: No cyanosis, clubbing or edema. LABORATORY DATA: CBC with white blood cell count of 5.2, hemoglobin 6.8, hematocrit 20.9, and platel ets 114. Chemistry with sodium of 138, potassium 4.1, chloride 119, CO2 15, BUN 25, creatinine 1.51, glucose 80, AST 39, ALT 30, alkaline phosphatase 51, total bilirubin 0.2. IMAGING DATA: No current GI imaging is available for review. ASSESSMENT AND PLAN: The patient is a 77-year-old female with past medical history of hypertension, hyperlipidemia, diabetes with peripheral neuropathy, osteoarthritis, chronic anemia, deep vein thromb osis/pulmonary embolism, stage 4 sacral decubitus ulceration and prior history of peptic ulcer diseas e initially presenting with increased abdominal pain and abnormal imaging of the stomach/duodenum con cerning for recurrent ulcer disease. Possible recurrent ulcer disease. Patient initially presented with an aversion to food and abdominal pain concerning for GI process. She was initially admitted to the ICU for evaluation of possible se psis as well for which she has responded well to management; however, during the course of hospitaliz ation, there was noted a CT scan from 01/2018 which showed thickening of the distal stomach and proxi mal small intestine concerning for the recurrence of peptic ulcer disease. During this hospitalizati on, she has also had slightly down trending hemoglobin and hematocrit concerning for possible bleedin g which could be from possible GI source versus iatrogenic. She has gotten transfused during this ho spitalization as well, but her hemoglobin and hematocrit continues to downtrend. Now whether or not this is from a GI source versus iatrogenic blood loss versus anemia of chronic disease versus bleedin g from the sacral decubitus ulceration and is unknown; however, she does not have any overt signs of active gastrointestinal bleeding at the current point in time. Per my discussion with the patient's medical power of bankruptcy attorney, further invasive intervention needs to be considered on a case by case bas is, but in this patient's case, may not necessarily improve her quality of life. RECOMMENDATIONS: 1. Would continue to trend hemoglobin and hematocrit and transfuse as necessary to maintain hemoglob in and hematocrit of 7/21. 2. Continue to monitor clinically for signs of active gastrointestinal bleeding. 3. We will hold off on endoscopic intervention for now, but we will confer with the medical power of bankruptcy attorney about any invasive therapies. 4. Continue patient on PPI b.i.d. for now. 5. Agree with palliative care options with multidisciplinary meeting with the patient's medical josee r of bankruptcy attorney to explain current goals of care and alternative/options for care. We will continue to follow. Please call with any questions.
[2018-04-05 14:42] VITALS: BMI 26.9
--- NOTE | 2018-04-05 16:18 | PRG ---
DATE OF SERVICE: 04/05/2018 SERVICE: Pulmonary Medicine. INTERVAL HISTORY: The patient is breathing comfortably. She denies any chest pain, nausea, vomiting , fevers or chills. Otherwise, there has been no interval change to her condition. She is much more awake and alert today. PHYSICAL EXAMINATION: VITAL SIGNS: Afebrile, pulse 80, blood pressure 161/68, respirations 16, saturation 97% on room air. GENERAL: The patient is awake, alert, no apparent distress. LUNGS: Decent air entry. I do not appreciate crackles, wheezing or rhonchi. HEART: Normal rate, regular. ABDOMEN: Soft, nontender, nondistended. Bowel sounds are positive. MUSCULOSKELETAL: No cyanosis or clubbing. There is no pitting in the bilateral lower extremities. NEUROLOGIC: Grossly nonfocal. LABORATORY DATA: WBC 5.2, hemoglobin 6.8, platelets 114,000 and down trending. A pH 7.3. Creatinin e 1.51 and beautifully down trending, BUN 25, sodium 138, chloride 119 and roughly stable. Urine cul ture is growing yeast species and gram negative madalyn. Blood cultures x2 are negative to date. ASSESSMENT: 1. Acute hypoxic respiratory failure, resolved. 2. Metabolic encephalopathy, improving. 3. Dehydration, severe, resolved. 4. Acute kidney injury, resolving. 5. Peptic ulcer disease. 6. Severe sepsis. 7. Urinary tract infection. DISCUSSION AND PLAN: At this point, the patient has no further requirements for inpatient Pulmonary or Critical Care opinion. As such, I will sign off. Please call with additional questions or concer ns moving forward.
== END 2018-04-05 15:57 | DRG 871 ==
LOC: ERS 01:35 → CCU 03:09 → T4-B 04-03 12:10
PROVIDERS: ADMIT Specialist; ATTEND Specialist
PROC: 5A1D70Z Performance of Urinary Filtration, Intermittent, Less than 6 Hours Per Day (ICD-10-PCS; principal; 2018-04-01)
DX: A41.9 Sepsis, unspecified organism (principal); L89.154 Pressure ulcer of sacral region, stage 4; G93.41 Metabolic encephalopathy; J96.01 Acute respiratory failure with hypoxia; N39.0 Urinary tract infection, site not specified; N17.9 Acute kidney failure, unspecified; E87.2 Acidosis; D50.9 Iron deficiency anemia, unspecified; F03.90 Unspecified dementia, unspecified severity, without behavioral disturbance, psychotic disturbance, mood disturbance, and anxiety; Z86.718 Personal history of other venous thrombosis and embolism; Z86.711 Personal history of pulmonary embolism; E78.5 Hyperlipidemia, unspecified; M19.90 Unspecified osteoarthritis, unspecified site; D64.9 Anemia, unspecified; E88.2 Lipomatosis, not elsewhere classified; E11.40 Type 2 diabetes mellitus with diabetic neuropathy, unspecified; G47.00 Insomnia, unspecified; E86.0 Dehydration; K27.9 Peptic ulcer, site unspecified, unspecified as acute or chronic, without hemorrhage or perforation; R65.20 Severe sepsis without septic shock; I95.9 Hypotension, unspecified; R13.10 Dysphagia, unspecified; Z66 Do not resuscitate; D69.6 Thrombocytopenia, unspecified; E87.6 Hypokalemia; Z88.2 Allergy status to sulfonamides; Z79.899 Other long term (current) drug therapy; Z79.84 Long term (current) use of oral hypoglycemic drugs
CPT/HCPCS: 36415; 36416; 36430; 70450; 71045; 80048; 80053; 80202; 81003; 81015; 82140; 82330; 82533; 82803; 83605; 83690; 83735; 84443; 85025; 86704; 86706; 86803; 86850; 86900; 86901; 87040; 87086; 87340; 93005; 94644; A4216; A4353; C9113; G8996-GN-CK; G8997-GN-CJ; J0131; J0696; J1642; J1815; J2997; J3370; J7050; J7611; P9016

== ENCOUNTER 2018-04-06 12:18 | Emergency (ER) | payer MEDICARE, MEDICAID | END 2018-04-06 14:40 | disposition home or self-care (01) | LOC: ERS 12:18 | DX: Z49.01 Encounter for fitting and adjustment of extracorporeal dialysis catheter (principal); K21.9 Gastro-esophageal reflux disease without esophagitis; D50.9 Iron deficiency anemia, unspecified; I10 Essential (primary) hypertension; F03.90 Unspecified dementia, unspecified severity, without behavioral disturbance, psychotic disturbance, mood disturbance, and anxiety; E11.9 Type 2 diabetes mellitus without complications; E78.5 Hyperlipidemia, unspecified; F32.9 Major depressive disorder, single episode, unspecified | CPT/HCPCS: 99284 ==